=== PATIENT | female | born 1960 | race Caucasian/White ===

== ENCOUNTER 2024-04-11 15:27 | Emergency (ER) | payer SELFPAY ==
[2024-04-11 16:02] VITALS: BP 111/87; PULSE 106
[2024-04-11] MEDS: Diphtheria,Pertussis(Acell),Tetanus Vaccine 0.5 ML Syringe IM ONE (16:06)
[2024-04-11] MEDS: Bacitracin Oint 1 GM U/D Packet TOP ONE (16:09)
== END 2024-04-11 16:23 | disposition home or self-care (01) ==
LOC: DL.ED 15:27
DX: S60.451A Superficial foreign body of left index finger, initial encounter (principal); Z23 Encounter for immunization; W45.8XXA Other foreign body or object entering through skin, initial encounter
CPT/HCPCS: 90471; 90715; 99283; A9270; 99282